=== PATIENT | male | born 1960 | race American Indian/Alaskan Native ===

== ENCOUNTER 2017-02-20 00:56 | Inpatient (IN) | payer SELFPAY ==
[2017-02-20 02:07] LABS: Basophils % (Auto) 1.2 % (0.0-1.8); Eosinophils % (Auto) 2.5 % (0.0-4.3); Hematocrit 39.1 % (35.5-45.6); Hemoglobin 13.2 gm/dl (11.8-15.2); Mean Corpuscular HGB Conc 34 % (32-34); Mean Corpuscular Hemoglobin 29 pg (28-32); Mean Corpuscular Volume 87 fl (84-94); Platelet Count 266 K/mm3 (140-440); Red Blood Count 4.49 M/mm3 (3.65-5.03); White Blood Count 7.2 K/mm3 (4.5-11.0)
[2017-02-20 02:24] LABS: INR 0.93 (0.87-1.13)
[2017-02-20 02:25] LABS: Partial Thromboplastin Time 27.1 Sec. (24.2-36.6)
[2017-02-20 02:32] LABS: Anion Gap 23 mmol/L; BUN/Creatinine Ratio 11.81; Blood Urea Nitrogen 13 mg/dL (9-20); Calcium 9.3 mg/dL (8.4-10.2); Carbon Dioxide 20 mmol/L (22-30); Chloride 90.7 mmol/L (98-107); Potassium 4.6 mmol/L (3.6-5.0); Sodium 129 mmol/L (137-145)
[2017-02-20 02:45] LABS: Glucose 765 mg/dL (75-100)
[2017-02-20] MEDS ORDERED: NACL 0.9% 1000 ML 1,000 ML ONE (03:43)
[2017-02-20] MEDS ORDERED: NACL 0.9% 1000 ML 1,000 ML IV ONE ×2 (03:45→04:50)
--- NOTE | 2017-02-20 03:48 | Cat Scan Report ---
FINAL REPORT PROCEDURE: CT HEAD/BRAIN WO CON TECHNIQUE: Computerized tomography of the head was performed without contrast material. HISTORY: neuro deficits \T\lt; 6hrs or sx present upon awakening COMPARISON: No prior studies are available for comparison. FINDINGS: Skull and scalp: Normal. Paranasal sinuses: There is a 2 centimeter polyp or retention cyst in the right maxillary sinus. There are no air-fluid levels.. Ventricles and subarachnoid spaces: Normal. Cerebrum: No evidence of hemorrhage, acute infarction or mass . Cerebellum and brainstem: No evidence of hemorrhage, acute infarction or mass. Vasculature: Normal. Comments: None. IMPRESSION: There is no hemorrhage, edema, mass, mass effect or midline shift.
[2017-02-20] MEDS ORDERED: ATIVAN PO ONE (04:11)
--- NOTE | 2017-02-20 04:11 | Emergency Department Report ---
HPI - General Chief Complaint: Neuro Symptoms/Deficit Time Seen by Provider: 02/20/17 03:43 - HPI HPI: 56-year-old male came to the ED with, weakness, polyuria, polydipsia, body jerking, just not feeling well. Patient denies any medical issues but has not seen a doctor in years. Patient denies any chest pain, shortness of breath, nausea, vomiting. ED Past Medical Hx - Past Medical History Previous Medical History?: No - Surgical History Past Surgical History?: No - Family History Family history: hypertension - Social History Smoking Status: Never Smoker Substance Use Type: None ED Review of Systems ROS: Stated complaint: INVOLUNTARY SHAKING Other details as noted in HPI Comment: All other systems reviewed and negative Musculoskeletal: arthralgia Neurological: weakness Physical Exam - Physical Exam Vital Signs: Vital Signs 02/20/17 02/20/17 02/20/17 01:31 02:56 03:00 Temperature 98.4 F Pulse Rate 89 80 78 Respiratory 16 26 H 22 Rate Blood Pressure 159/106 170/105 Blood Pressure [Left] O2 Sat by Pulse 96 95 95 Oximetry 02/20/17 02/20/17 02/20/17 03:10 03:20 03:23 Temperature 98 F Pulse Rate 79 79 Respiratory 24 15 26 H Rate Blood Pressure 170/105 163/107 Blood Pressure 174/108 [Left] O2 Sat by Pulse 92 96 94 Oximetry 02/20/17 03:25 Temperature Pulse Rate Respiratory 26 H Rate Blood Pressure Blood Pressure [Left] O2 Sat by Pulse Oximetry Physical Exam: Gen. alert and oriented 3 in no distress Head atraumatic normocephalic Eyes PERR LA EOMI Chest regular rate and rhythm normal S1-S2 lungs clear bilaterally Abdomen soft nondistended Back no point tenderness paravertebral tenderness Neuro no focal deficit. Psych normal mood. ED Course Vital Signs 02/20/17 02/20/17 02/20/17 01:31 02:56 03:00 Temperature 98.4 F Pulse Rate 89 80 78 Respiratory 16 26 H 22 Rate Blood Pressure 159/106 170/105 Blood Pressure [Left] O2 Sat by Pulse 96 95 95 Oximetry 02/20/17 02/20/17 02/20/17 03:10 03:20 03:23 Temperature 98 F Pulse Rate 79 79 Respiratory 24 15 26 H Rate Blood Pressure 170/105 163/107 Blood Pressure 174/108 [Left] O2 Sat by Pulse 92 96 94 Oximetry 02/20/17 03:25 Temperature Pulse Rate Respiratory 26 H Rate Blood Pressure Blood Pressure [Left] O2 Sat by Pulse Oximetry ED Medical Decision Making - Lab Data Result diagrams: 02/20/17 01:48 02/20/17 01:48 Critical care attestation.: If time is entered above; I have spent that time in minutes in the direct care of this critically ill patient, excluding procedure time. ED Disposition Clinical Impression: Hyperosmolar non-ketotic state in patient with type 2 diabetes mellitus Disposition: DC-09 OP ADMIT IP TO THIS HOSP Is pt being admited?: Yes Does the pt Need Aspirin: No Condition: Stable Instructions: Diabetes Mellitus Type 2 in Adults (ED) Referrals: PRIMARY CARE, [Primary Care Provider] - 3-5 Days
[2017-02-20] MEDS ORDERED: D50W (25GM) Syringe IV PRN ×2 (04:50→08:43)
--- NOTE | 2017-02-20 04:58 | History and Physical Report ---
History of Present Illness Date of examination: 02/20/17 Date of admission: 02/20/17 04:11 Chief complaint: 56 year old -[place] male with no significant past medical history presented to the emergency department with complaints of polydipsia, polyuria and dry mouth. Patient has never been productive for the last 15 years. Patient also complains controlled muscle spasm on the left side of the stomach that subsided by the time of admission. Patient denied fever, chills, cough, palpitations. REVIEW OF SYSTEMS: GENERAL: no weight change, + fatigue, no fever HEAD: no head ache EYES: no blurry vision, no acute visual loss EARS: no hearing loss, no discharge, no earache NOSE: no stuffiness, no sneezing, no discharge MOUTH, THROAT AND NECK: no bleeding gums, no sore throat, no swollen neck CARDIAC: no palpitations, no dyspnea on exertion, no orthopnea, no PND, no edema , no chest pain RESPIRATORY: no shortness of breath, no wheeze, no cough, no sputum, no hemoptysis, no asthma GI: no decreased appetite, no nausea, no vomiting, no dysphagia, no diarrhea, no constipation, no abdominal pain URINARY: no change in frequency, no urgency, no polyuria, no hematuria, no incontinence MUSCULOSKELETAL: no muscle weakness, no pain, no joint stiffness NEUROLOGIC: no loss of sensation/numbness, no tingling, no tremors, no weakness/ paralysis HEMATOLOGIC: no anemia, no easy bruising SKIN: no rashes ENDOCRINE: no heat/cold intolerance, + polyuria, +polydipsia, no thyroid problems, + diabetes PSYCHIATRIC: no anxiety, no depression, no suicidal ideations Past History Past Medical History: No medical history Past Surgical History: No surgical history Social history: full code. denies: smoking, alcohol abuse, prescription drug abuse, IV drug use Family history: diabetes (mother) Medications and Allergies Allergies Allergy/AdvReac Type Severity Reaction Status Date / Time No Known Allergies Allergy Verified 02/20/17 01:31 Active Meds: Active Medications Enoxaparin Sodium (Lovenox) 40 mg SUB-Q QDAY QUIANA Exam - Physical Exam Narrative exam: Not in cardiopulmonary distress. The patient is obese. Vital signs as documented. Head exam is unremarkable. Dry mouth. No scleral icterus . Neck is without jugular venous distension, thyromegaly, or carotid bruits. Lungs are clear to auscultation. Cardiac exam reveals regular rate and Rhythm. First and second heart sounds normal. No murmurs, rubs or gallops. Abdominal exam reveals normal bowel sounds, no masses, no organomegaly and no aortic enlargement. Extremities are nonedematous and both femoral and pedal pulses are normal. ACUPUNCTURIST: Alert and oriented 3. No focal weakness. - Constitutional Vitals: Temp Pulse Resp BP Pulse Ox 98 F 81 21 161/104 96 02/20/17 03:23 02/20/17 04:20 02/20/17 04:20 02/20/17 04:20 02/20/17 04:20 Results - Labs CBC & Chem 7: 02/20/17 01:48 02/20/17 01:48 Labs: Laboratory Last Values WBC 7.2 K/mm3 (4.5-11.0) 02/20/17 01:48 RBC 4.49 M/mm3 (3.65-5.03) 02/20/17 01:48 Hgb 13.2 gm/dl (11.8-15.2) 02/20/17 01:48 Hct 39.1 % (35.5-45.6) 02/20/17 01:48 MCV 87 fl (84-94) 02/20/17 01:48 MCH 29 pg (28-32) 02/20/17 01:48 MCHC 34 % (32-34) 02/20/17 01:48 RDW 13.0 % (13.2-15.2) L 02/20/17 01:48 Plt Count 266 K/mm3 (140-440) 02/20/17 01:48 Lymph % (Auto) 36.9 % (13.4-35.0) H 02/20/17 01:48 [place] % (Auto) 9.3 % (0.0-7.3) H 02/20/17 01:48 Eos % (Auto) 2.5 % (0.0-4.3) 02/20/17 01:48 Baso % (Auto) 1.2 % (0.0-1.8) 02/20/17 01:48 Lymph # 2.6 K/mm3 (1.2-5.4) 02/20/17 01:48 [place] # 0.7 K/mm3 (0.0-0.8) 02/20/17 01:48 Eos # 0.2 K/mm3 (0.0-0.4) 02/20/17 01:48 Baso # 0.1 K/mm3 (0.0-0.1) 02/20/17 01:48 Seg Neutrophils % 50.1 % (40.0-70.0) 02/20/17 01:48 Seg Neutrophils # 3.6 K/mm3 (1.8-7.7) 02/20/17 01:48 PT 12.4 Sec. (12.2-14.9) 02/20/17 01:48 INR 0.93 (0.87-1.13) 02/20/17 01:48 APTT 27.1 Sec. (24.2-36.6) 02/20/17 01:48 Thrombin Time 16.2 Sec. (15.1-19.6) 02/20/17 01:48 Sodium 129 mmol/L (137-145) L 02/20/17 01:48 Potassium 4.6 mmol/L (3.6-5.0) 02/20/17 01:48 Chloride 90.7 mmol/L (98-107) L 02/20/17 01:48 Carbon Dioxide 20 mmol/L (22-30) L 02/20/17 01:48 Anion Gap 23 mmol/L 02/20/17 01:48 BUN 13 mg/dL (9-20) 02/20/17 01:48 Creatinine 1.1 mg/dL (0.8-1.5) 02/20/17 01:48 Estimated GFR > 60 ml/min 02/20/17 01:48 BUN/Creatinine Ratio 11.81 % 02/20/17 01:48 Glucose 765 mg/dL (75-100) H* 02/20/17 01:48 POC Glucose > 500 (70-105) H 02/20/17 03:50 Calcium 9.3 mg/dL (8.4-10.2) 02/20/17 01:48 Troponin T < 0.010 ng/mL (0.00-0.029) 02/20/17 01:48 - Imaging and Cardiology CT Scan - head: image reviewed (no acute intracranial process identified) Assessment and Plan Assessment and plan: Hyperglycemic hyperosmolar state - Manage like DKA with DKA protocol Newly diagnosed type II DM with hyperglycemia - Insulin drip, manage electrolyte abnormalities, IV fluids DVT prophylaxis - On Lovenox Disposition - Admit to ICU The high probability of a clinically significant, sudden or life threatening deterioration of the [endocrine] system(s) required my full and direct attention , intervention and personal management. The aggregate critical care time was [31 ] minutes. This time is in addition to time spent performing reported procedures but includes the following: [x] Data Review and interpretation [x] Patient assessment and monitoring of vital signs [x] Documentation [x] Medication orders and management Advance Directives: Yes VTE prophylaxis?: Chemical Plan of care discussed with patient/family: Yes
[2017-02-20] MEDS ORDERED: D5W/0.45% NACL/KCL 20 MEQ 20 MEQ/1,000 ML BAG IV SCH (05:00)
[2017-02-20] MEDS ORDERED: NovoLIN R 100 UNITS in NACL 0.9% 99 ML IV SCH (05:00)
[2017-02-20 06:09] LABS: Anion Gap 17 mmol/L; Blood Urea Nitrogen 12 mg/dL (9-20); Calcium 8.9 mg/dL (8.4-10.2); Carbon Dioxide 25 mmol/L (22-30); Chloride 96.4 mmol/L (98-107); Glucose 442 mg/dL (75-100); Potassium 4.2 mmol/L (3.6-5.0); Sodium 134 mmol/L (137-145)
[2017-02-20 06:11] LABS: Magnesium 2.1 mg/dL (1.7-2.3); Phosphorous 2.3 mg/dL (2.5-4.5)
[2017-02-20 08:39] LABS: Anion Gap 17 mmol/L; Blood Urea Nitrogen 11 mg/dL (9-20); Calcium 8.9 mg/dL (8.4-10.2); Carbon Dioxide 23 mmol/L (22-30); Chloride 102.4 mmol/L (98-107); Glucose 253 mg/dL (75-100); Potassium 3.8 mmol/L (3.6-5.0); Sodium 139 mmol/L (137-145)
--- NOTE | 2017-02-20 09:57 | Progress Note ---
Assessment and Plan Assessment and plan: DKA. Resolved. Patient will be transitioned to long-acting insulin of 70/30 twice a day. Continue sliding scale regular insulin. Diabetic diet. Diabetic teaching. New-onset diabetes mellitus type 2. As above. DVT prophylaxis. Continue Lovenox. History Interval history: No new issues since admission. Hospitalist Physical - Constitutional Vitals: Temp Pulse Resp BP Pulse Ox 98 F 74 20 170/103 99 02/20/17 03:23 02/20/17 08:00 02/20/17 08:00 02/20/17 08:00 02/20/17 08:00 General appearance: Present: no acute distress, well-nourished - EENT Eyes: Present: PERRL, EOM intact ENT: hearing intact, clear oral mucosa, dentition normal - Neck Neck: Present: supple, normal ROM - Respiratory Respiratory effort: normal Respiratory: bilateral: CTA - Cardiovascular Rhythm: regular Heart Sounds: Present: S1 & S2. Absent: gallop, rub - Extremities Extremities: no ischemia, No edema, Full ROM - Abdominal General gastrointestinal: soft, non-tender, non-distended, normal bowel sounds - Integumentary Integumentary: Present: clear, warm, dry - Neurologic Neurologic: CNII-XII intact, moves all extremities Results - Labs CBC & Chem 7: 02/20/17 01:48 02/20/17 07:53 Labs: Laboratory Last Values WBC 7.2 K/mm3 (4.5-11.0) 02/20/17 01:48 RBC 4.49 M/mm3 (3.65-5.03) 02/20/17 01:48 Hgb 13.2 gm/dl (11.8-15.2) 02/20/17 01:48 Hct 39.1 % (35.5-45.6) 02/20/17 01:48 MCV 87 fl (84-94) 02/20/17 01:48 MCH 29 pg (28-32) 02/20/17 01:48 MCHC 34 % (32-34) 02/20/17 01:48 RDW 13.0 % (13.2-15.2) L 02/20/17 01:48 Plt Count 266 K/mm3 (140-440) 02/20/17 01:48 Lymph % (Auto) 36.9 % (13.4-35.0) H 02/20/17 01:48 [place] % (Auto) 9.3 % (0.0-7.3) H 02/20/17 01:48 Eos % (Auto) 2.5 % (0.0-4.3) 02/20/17 01:48 Baso % (Auto) 1.2 % (0.0-1.8) 02/20/17 01:48 Lymph # 2.6 K/mm3 (1.2-5.4) 02/20/17 01:48 [place] # 0.7 K/mm3 (0.0-0.8) 02/20/17 01:48 Eos # 0.2 K/mm3 (0.0-0.4) 02/20/17 01:48 Baso # 0.1 K/mm3 (0.0-0.1) 02/20/17 01:48 Seg Neutrophils % 50.1 % (40.0-70.0) 02/20/17 01:48 Seg Neutrophils # 3.6 K/mm3 (1.8-7.7) 02/20/17 01:48 PT 12.4 Sec. (12.2-14.9) 02/20/17 01:48 INR 0.93 (0.87-1.13) 02/20/17 01:48 APTT 27.1 Sec. (24.2-36.6) 02/20/17 01:48 Thrombin Time 16.2 Sec. (15.1-19.6) 02/20/17 01:48 Sodium 139 mmol/L (137-145) 02/20/17 07:53 Potassium 3.8 mmol/L (3.6-5.0) 02/20/17 07:53 Chloride 102.4 mmol/L (98-107) 02/20/17 07:53 Carbon Dioxide 23 mmol/L (22-30) 02/20/17 07:53 Anion Gap 17 mmol/L 02/20/17 07:53 BUN 11 mg/dL (9-20) 02/20/17 07:53 Creatinine 1.0 mg/dL (0.8-1.5) 02/20/17 07:53 Estimated GFR > 60 ml/min 02/20/17 07:53 BUN/Creatinine Ratio 11.00 % 02/20/17 07:53 Glucose 253 mg/dL (75-100) H 02/20/17 07:53 POC Glucose 242 (70-105) H 02/20/17 09:20 Hemoglobin A1c 13.6 % (4-6) H 02/20/17 05:13 Osmolality 310 Mosm/kg 02/20/17 05:13 Calcium 8.9 mg/dL (8.4-10.2) 02/20/17 07:53 Phosphorus 2.30 mg/dL (2.5-4.5) L 02/20/17 05:13 Magnesium 2.10 mg/dL (1.7-2.3) 02/20/17 05:13 Troponin T < 0.010 ng/mL (0.00-0.029) 02/20/17 01:48 Triglycerides 162 mg/dL (2-149) H 02/20/17 05:13 Cholesterol 152 mg/dL (50-199) 02/20/17 05:13 LDL Cholesterol Direct 86 mg/dL (50-130) 02/20/17 05:13 HDL Cholesterol 34 mg/dL (40-59) L 02/20/17 05:13 Cholesterol/HDL Ratio 4.47 % 02/20/17 05:13
[2017-02-20] MEDS: LOVENOX SUB-Q SCH (11:03)
[2017-02-20] MEDS: NORMODYNE PO SCH ×2 (17:15→23:14)
--- NOTE | 2017-02-21 09:26 | Progress Note ---
Assessment and Plan Assessment and plan: DKA. Resolved. Increase insulin of 70/30 to 26 units BID. Continue sliding scale regular insulin. Diabetic diet. Diabetic teaching. New-onset diabetes mellitus type 2. As above. DVT prophylaxis. Continue Lovenox. Disposition. Anticipate discharge in a.m. History Interval history: No new issues since admission. Hospitalist Physical - Constitutional Vitals: Temp Pulse Resp BP Pulse Ox 98.8 F 66 24 155/95 99 02/21/17 08:16 02/21/17 08:16 02/21/17 08:16 02/21/17 08:16 02/21/17 08:16 General appearance: Present: no acute distress, well-nourished - EENT Eyes: Present: PERRL, EOM intact ENT: hearing intact, clear oral mucosa, dentition normal - Neck Neck: Present: supple, normal ROM - Respiratory Respiratory effort: normal Respiratory: bilateral: CTA - Cardiovascular Rhythm: regular Heart Sounds: Present: S1 & S2. Absent: gallop, rub - Extremities Extremities: no ischemia, No edema, Full ROM - Abdominal General gastrointestinal: soft, non-tender, non-distended, normal bowel sounds - Integumentary Integumentary: Present: clear, warm, dry - Neurologic Neurologic: CNII-XII intact, moves all extremities Results - Labs CBC & Chem 7: 02/20/17 01:48 02/20/17 07:53 Labs: Laboratory Last Values WBC 7.2 K/mm3 (4.5-11.0) 02/20/17 01:48 RBC 4.49 M/mm3 (3.65-5.03) 02/20/17 01:48 Hgb 13.2 gm/dl (11.8-15.2) 02/20/17 01:48 Hct 39.1 % (35.5-45.6) 02/20/17 01:48 MCV 87 fl (84-94) 02/20/17 01:48 MCH 29 pg (28-32) 02/20/17 01:48 MCHC 34 % (32-34) 02/20/17 01:48 RDW 13.0 % (13.2-15.2) L 02/20/17 01:48 Plt Count 266 K/mm3 (140-440) 02/20/17 01:48 Lymph % (Auto) 36.9 % (13.4-35.0) H 02/20/17 01:48 [place] % (Auto) 9.3 % (0.0-7.3) H 02/20/17 01:48 Eos % (Auto) 2.5 % (0.0-4.3) 02/20/17 01:48 Baso % (Auto) 1.2 % (0.0-1.8) 02/20/17 01:48 Lymph # 2.6 K/mm3 (1.2-5.4) 02/20/17 01:48 [place] # 0.7 K/mm3 (0.0-0.8) 02/20/17 01:48 Eos # 0.2 K/mm3 (0.0-0.4) 02/20/17 01:48 Baso # 0.1 K/mm3 (0.0-0.1) 02/20/17 01:48 Seg Neutrophils % 50.1 % (40.0-70.0) 02/20/17 01:48 Seg Neutrophils # 3.6 K/mm3 (1.8-7.7) 02/20/17 01:48 PT 12.4 Sec. (12.2-14.9) 02/20/17 01:48 INR 0.93 (0.87-1.13) 02/20/17 01:48 APTT 27.1 Sec. (24.2-36.6) 02/20/17 01:48 Thrombin Time 16.2 Sec. (15.1-19.6) 02/20/17 01:48 Sodium 139 mmol/L (137-145) 02/20/17 07:53 Potassium 3.8 mmol/L (3.6-5.0) 02/20/17 07:53 Chloride 102.4 mmol/L (98-107) 02/20/17 07:53 Carbon Dioxide 23 mmol/L (22-30) 02/20/17 07:53 Anion Gap 17 mmol/L 02/20/17 07:53 BUN 11 mg/dL (9-20) 02/20/17 07:53 Creatinine 1.0 mg/dL (0.8-1.5) 02/20/17 07:53 Estimated GFR > 60 ml/min 02/20/17 07:53 BUN/Creatinine Ratio 11.00 % 02/20/17 07:53 Glucose 253 mg/dL (75-100) H 02/20/17 07:53 POC Glucose 242 (70-105) H 02/21/17 06:31 Hemoglobin A1c 13.6 % (4-6) H 02/20/17 05:13 Osmolality 310 Mosm/kg 02/20/17 05:13 Calcium 8.9 mg/dL (8.4-10.2) 02/20/17 07:53 Phosphorus 2.30 mg/dL (2.5-4.5) L 02/20/17 05:13 Magnesium 2.10 mg/dL (1.7-2.3) 02/20/17 05:13 Troponin T < 0.010 ng/mL (0.00-0.029) 02/20/17 01:48 Triglycerides 162 mg/dL (2-149) H 02/20/17 05:13 Cholesterol 152 mg/dL (50-199) 02/20/17 05:13 LDL Cholesterol Direct 86 mg/dL (50-130) 02/20/17 05:13 HDL Cholesterol 34 mg/dL (40-59) L 02/20/17 05:13 Cholesterol/HDL Ratio 4.47 % 02/20/17 05:13
[2017-02-21] MEDS: NORMODYNE PO SCH ×2 (09:33→22:11)
[2017-02-21] MEDS: LOVENOX SUB-Q SCH (09:33)
--- NOTE | 2017-02-22 08:00 | Discharge Summary ---
Providers - Providers Date of Admission: 02/20/17 04:11 Date of discharge: 02/22/17 Attending physician: AUGUSTINE SANTAMARIA 02/20/17 17:49 Consult to Dietitian/Nutrition [CONS] Routine Physician Instructions: Reason For Exam: Diabetic teaching Reason for Consult: Diet education Primary care physician: [employer] Hospitalization Reason for admission: DKA Condition: Stable Hospital course: 56 year old -Marshallese male with no significant past medical history presented to the emergency department with complaints of polydipsia, polyuria and dry mouth. Patient denied fever, chills, cough, palpitations. Patient was admitted with diagnosis of new onset diabetes mellitus and DKA. Patient received IV fluid hydration and IV insulin. Patient's anion gap close and DKA resolved. Patient was later transitioned to long-acting 70/30 insulin twice a day. Patient received diet/diabetic education. Patient's blood sugars stabilize and it was felt that he had received maximal hospital benefit. Therefore, patient will be discharged home. Dedicated discharge time 31 minutes. Disposition: TO HOME OR SELFCARE Time spent for discharge: 31 - Discharge Diagnoses (1) DKA (diabetic ketoacidoses) Status: Acute Qualifiers: Diabetes mellitus type: D Diabetes mellitus complication detail: D (2) Diabetes mellitus Status: Acute Qualifiers: Diabetes mellitus type: D Diabetes mellitus complication status: D Diabetes mellitus complication detail: D Diabetic retinopathy severity: D Proliferative retinopathy type: P Diabetes mellitus macular edema: D Diabetes mellitus long-term insulin use: D Laterality: L Chronic kidney disease stage: C Core Measure Documentation - Palliative Care Palliative Care/ Comfort Measures: Not Applicable - Core Measures Any of the following diagnoses?: none Exam - Constitutional Vitals: Temp Pulse Resp BP Pulse Ox 98.5 F 62 24 158/98 96 02/22/17 07:52 02/22/17 07:52 02/22/17 07:52 02/22/17 07:52 02/22/17 07:52 General appearance: Present: no acute distress, well-nourished - EENT Eyes: Present: PERRL ENT: hearing intact, clear oral mucosa - Neck Neck: Present: supple, normal ROM - Respiratory Respiratory effort: normal Respiratory: bilateral: CTA - Cardiovascular Heart Sounds: Present: S1 & S2. Absent: rub, click - Extremities Extremities: pulses symmetrical, No edema Peripheral Pulses: within normal limits - Abdominal General gastrointestinal: Present: soft, non-tender, non-distended, normal bowel sounds Male genitourinary: Present: normal - Integumentary Integumentary: Present: clear, warm, dry - Musculoskeletal Musculoskeletal: gait normal, strength equal bilaterally - Psychiatric Psychiatric: appropriate mood/affect, intact judgment & insight - Neurologic Neurologic: CNII-XII intact, moves all extremities Plan Activity: no restrictions Weight Bearing Status: Full Weight Bearing Diet: diabetic Follow up with: PRIMARY CARE, [Primary Care Provider] - 3-5 Days Prescriptions: Insulin NPH/Regular [NovoLIN 70/30] 34 unit SQ BIDDIAB #30 ml Insulin Regular, Human [HumuLIN R] 1 units SUB-Q ACHS #30 units Labetalol HCl 400 mg PO BID #60 tablet Other Discharge Orders: Glucometer (Amb) Location: Determined By Patient Glucometer supplies[Amb] Location: Determined By Patient
[2017-02-22] MEDS: LOVENOX SUB-Q SCH (09:11)
[2017-02-22] MEDS: NORMODYNE PO SCH (09:11)
[2017-02-22 11:52] VITALS: BP 138/94
== END 2017-02-22 12:30 | disposition home or self-care (01) | DRG 639 ==
LOC: ED 00:56 → 4A 04:11 → CC1 06:03 → 3A 08:56
PROVIDERS: ADMIT Internal Medicine; ATTEND Hospitalist
DX: E13.10 Other specified diabetes mellitus with ketoacidosis without coma (principal); Z82.49 Family history of ischemic heart disease and other diseases of the circulatory system; Z83.3 Family history of diabetes mellitus
CPT/HCPCS: 36415; 70450; 80048; 80061; 82962; 83036; 83735; 83930; 84100; 84484; 85025; 85610; 85670; 85730; 93005; 93010; 96361; 96365; 96372; 96376; J1650; J1815; J7030

== ENCOUNTER 2021-07-03 19:07 | Emergency (ER) | payer SELFPAY ==
[2021-07-03 19:15] VITALS: BP 154/96
== END 2021-07-03 21:12 | disposition left against medical advice (07) ==
LOC: ED 19:07
DX: I10 Essential (primary) hypertension (principal); Z53.21 Procedure and treatment not carried out due to patient leaving prior to being seen by health care provider

== ENCOUNTER 2021-10-01 09:32 | Emergency (ER) | payer BC ==
[2021-10-01 10:39] VITALS: BP 142/103
--- NOTE | 2021-10-01 11:17 | Emergency Department Report ---
ED General Adult HPI - General Chief complaint: Medical Clearance Stated complaint: NEED REFILL ON MEDS (GLUCOSE) Time Seen by Provider: 10/01/21 10:51 Source: patient Mode of arrival: Ambulatory Limitations: No Limitations - History of Present Illness Initial comments: 61-year-old male with a known history of type 2 diabetes currently on insulin and hypertension presents to the ER today requesting refills on his medications. Patient is on Novolin 70/30 (sliding scale) and he admits that he has been out for a bout 1 month. He currently does not have a primary care doctor. He has been checking his blood sugars regularly he states that today was 259. He states that he has a few tablets of his blood pressure medications left but was open to get a refill so he does not run out. He does not recall the name of his blood pressure medication. He admits that there are times he has been noncompliant with his blood pressure medications. Patient complains of some mild pain in his right lower thoracic area x2 weeks. He states that he thinks may have pulled a muscle because it started after he was lifting, seems to be worse with certain movements. He states that it seems to be getting better but just wanted to mention it so we can recommend something that he could take. He denies any UTI symptoms, chest pain, abdominal pain, shortness of breath, bowel or bladder incontinence, fever or any additional symptoms at this time. MD Complaint: Medication refill -: month(s) Severity scale (0 -10): 0 - Related Data Previous Rx's Medication Instructions Recorded Last Taken Type Insulin Regular, Human [HumuLIN R] 1 units SUB-Q ACHS #30 units 02/22/17 Unknown Rx Labetalol HCl 400 mg PO BID #60 tablet 02/22/17 Unknown Rx Insulin NPH Hum/Reg Insulin Hm 100 unit SQ DAILY #1 vial 10/01/21 Unknown Rx [Novolin 70-30 100 Unit/ml Vial] Naproxen [Naprosyn] 500 mg PO BID #20 10/01/21 Unknown Rx amLODIPine 10 mg PO DAILY #30 tab 10/01/21 Unknown Rx Allergies Allergy/AdvReac Type Severity Reaction Status Date / Time No Known Allergies Allergy Verified 02/20/17 01:31 ED Review of Systems ROS: Stated complaint: NEED REFILL ON MEDS (GLUCOSE) Other details as noted in HPI Comment: All other systems reviewed and negative Constitutional: denies: chills, fever Respiratory: denies: cough, shortness of breath, wheezing Cardiovascular: denies: chest pain, palpitations Gastrointestinal: denies: abdominal pain, nausea, diarrhea Genitourinary: denies: urgency, dysuria, frequency, hematuria, discharge, testicular pain, testicular mass Musculoskeletal: back pain. denies: joint swelling, arthralgia, myalgia Skin: denies: rash, lesions Neurological: denies: headache, weakness, numbness, paresthesias, confusion, abnormal gait, vertigo Psychiatric: denies: anxiety, depression, auditory hallucinations, visual hallucinations, homicidal thoughts, suicidal thoughts Hematological/Lymphatic: denies: easy bleeding, easy bruising ED Past Medical Hx - Past Medical History Hx Hypertension: Yes Hx Diabetes: Yes - Social History Smoking Status: Never Smoker Substance Use Type: None (Denies illicit drug use) - Medications Home Medications: Home Medications Medication Instructions Recorded Confirmed Last Taken Type Insulin Regular, Human [HumuLIN R] 1 units SUB-Q ACHS #30 units 02/22/17 Unknown Rx Labetalol HCl 400 mg PO BID #60 tablet 02/22/17 Unknown Rx Insulin NPH Hum/Reg Insulin Hm 100 unit SQ DAILY #1 vial 10/01/21 Unknown Rx [Novolin 70-30 100 Unit/ml Vial] Naproxen [Naprosyn] 500 mg PO BID #20 10/01/21 Unknown Rx amLODIPine 10 mg PO DAILY #30 tab 10/01/21 Unknown Rx ED Physical Exam - General Limitations: No Limitations General appearance: alert, in no apparent distress - Head Head exam: Present: atraumatic, normocephalic, normal inspection - Eye Eye exam: Present: normal appearance, PERRL, EOMI Pupils: Present: normal accommodation - ENT ENT exam: Present: mucous membranes moist - Neck Neck exam: Present: normal inspection, full ROM. Absent: meningismus - Respiratory Respiratory exam: Present: normal lung sounds bilaterally. Absent: respiratory distress, wheezes, rales, rhonchi, stridor - Cardiovascular Cardiovascular Exam: Present: regular rate - GI/Abdominal GI/Abdominal exam: Present: soft. Absent: distended, tenderness, guarding, rebound - Back Exam Back exam: Present: normal inspection, full ROM, paraspinal tenderness (mild point ttp right lower thoracic area; No swelling, deformity, ecchymosis noted). Absent: vertebral tenderness - Neurological Exam Neurological exam: Present: alert, oriented X3, CN II-XII intact, normal gait - Psychiatric Psychiatric exam: Present: normal affect, normal mood - Skin Skin exam: Present: intact ED Course Vital Signs 10/01/21 10:35 Temperature 97.8 F Pulse Rate 78 Respiratory 18 Rate Blood Pressure 142/103 [Right] O2 Sat by Pulse 100 Oximetry Critical care attestation.: If time is entered above; I have spent that time in minutes in the direct care of this critically ill patient, excluding procedure time. ED Disposition Clinical Impression: Medication refill, Diabetes mellitus, Hypertension, Back strain Disposition: HOME / SELF CARE / HOMELESS Is pt being admited?: No Does the pt Need Aspirin: No Condition: Stable Instructions: Type 2 Diabetes Mellitus, Self Care, Adult, [id number], Back Exercises, [id number], Muscle Strain, Managing Your Hypertension, Diabetes Mellitus and Nutrition, Adult, Diabetes Mellitus Type 2 in Adults (ED), Hypertension (ED) Additional Instructions: I recommend that you take your insulin your blood pressure medication as prescribed. Follow-up with the primary care doctor listed her discharge instructions for continued refills and monitoring of your blood pressure and diabetes. You can take the naproxen to help with your back strain. Increase your water intake. Continue to monitor your blood pressure twice a day as well as your blood sugar and keep a record of your readings to take with you to your primary care doctor's office visit. Return to the ER if anything changes or worsens in any way. Prescriptions: amLODIPine 10 mg PO DAILY #30 tab Naproxen [Naprosyn] 500 mg PO BID #20 Insulin NPH Hum/Reg Insulin Hm [Novolin 70-30 100 Unit/ml Vial] 100 unit SQ DAILY #1 vial Referrals: CA PARR MD [Staff Physician] - 3-5 Days (Primary Care Physician ) ISAAC MUNIZ MD [Staff Physician] - 3-5 Days (Primary Care physician ) Time of Disposition: 11:24
== END 2021-10-01 11:46 | disposition home or self-care (01) ==
LOC: ED 09:32
DX: S29.012A Strain of muscle and tendon of back wall of thorax, initial encounter (principal); Z76.0 Encounter for issue of repeat prescription; E11.9 Type 2 diabetes mellitus without complications; I10 Essential (primary) hypertension; Z79.4 Long term (current) use of insulin; Z79.899 Other long term (current) drug therapy; X58.XXXA Exposure to other specified factors, initial encounter; Y93.89 Activity, other specified; Y92.89 Other specified places as the place of occurrence of the external cause; Y99.8 Other external cause status
CPT/HCPCS: 99282